=== PATIENT | female | born 1995 | race African-American/Black ===

== ENCOUNTER 2016-09-02 04:23 | Inpatient (IN) | payer MEDICAID ==
[2016-09-02] MEDS ORDERED: Sodium Chloride 0.9% 10 ML Syringe FLUSH PRN (04:40)
[2016-09-02] MEDS ORDERED: Oxytocin/Lactated Ringers 10 UNIT/1,000 ML BAG IV SCH (04:45)
[2016-09-02] MEDS: Lactated Ringers 1,000 ML IV SCH ×2 (05:15→06:07)
[2016-09-02] MEDS ORDERED: ePHEDrine 50 MG/ML SDV IVPUSH PRN (05:23)
[2016-09-02] MEDS ORDERED: diphenhydrAMINE 50 MG/ML SDV IVPUSH PRN (05:23)
[2016-09-02] MEDS ORDERED: fentaNYL 100 MCG/2 ML SDV EPIDUR PRN (05:23)
[2016-09-02] MEDS ORDERED: fentaNYL 100 MCG/2 ML SDV ONE (05:24)
[2016-09-02] MEDS ORDERED: Bupivacaine/fentaNYL/NS 100 ML Bag EPIDUR SCH (05:30)
--- NOTE | 2016-09-02 06:03 | PCM.PREANE ---
Preanesthetic Assessment - Anesthesia/Transfusion/Family Hx Anesthesia History: Prior Anesthesia Without Reaction Family History of Anesthesia Reaction: No Transfusion History: No Prior Transfusion(s) - Review of Systems General: No Symptoms Pulmonary: No Symptoms Cardiovascular: No Symptoms Gastrointestinal: No symptoms Neurological: No Symptoms Other: Reports: None - Physical Assessment Pulse: 84 O2 Sat by Pulse Oximetry: 100 Respiratory Rate: 16 Blood Pressure: 136/48 Temperature: 36.9 C Vital Signs: Last Vital Signs Temp 36.7 C 09/02/16 04:40 Pulse 104 H 09/02/16 04:40 Resp 16 09/02/16 04:40 BP 131/87 09/02/16 04:40 Pulse Ox 100 09/02/16 04:40 Height: 1.6 m Weight: 64.637 kg ASA Class: 2 Mental Status: Alert & Oriented x3 Airway Class: Mallampati = 1 Dentition: Reports: Normal Dentition Thyro-Mental Finger Breadths: 3 Mouth Opening Finger Breadths: 3 ROM/Head Extension: Full Lungs: Clear to auscultation, Normal respiratory effort Cardiovascular: Regular Rate, Regular Rhythm, No Murmurs - Lab Values: Laboratory Last Values WBC 13.33 K/mm3 (3.98-10.04) H 09/02/16 04:50 RBC 4.77 M/mm3 (3.98-5.22) 09/02/16 04:50 Hgb 12.6 gm/L (11.2-15.7) 09/02/16 04:50 Hct 37.0 % (34.1-44.9) 09/02/16 04:50 MCV 77.6 fl (79.4-94.8) L 09/02/16 04:50 MCH 26.4 pg (25.6-32.2) 09/02/16 04:50 MCHC 34.1 g/dl (32.2-35.5) 09/02/16 04:50 RDW Std Deviation 40.3 fL (36.4-46.3) 09/02/16 04:50 Plt Count 214 K/mm3 (182-369) 09/02/16 04:50 MPV 10.9 fl (9.4-12.3) 09/02/16 04:50 Neut % (Auto) 73.8 % (34.0-71.1) H 09/02/16 04:50 Lymph % (Auto) 17.8 % (19.3-51.7) L 09/02/16 04:50 Forrest % (Auto) 8.2 % (4.7-12.5) 09/02/16 04:50 Eos % (Auto) 0 (0.7-5.8) L 09/02/16 04:50 Baso % (Auto) 0.2 % (0.1-1.2) 09/02/16 04:50 Neut # (Auto) 9.85 K/mm3 (1.56-6.13) H 09/02/16 04:50 Lymph # (Auto) 2.37 K/mm3 (1.18-3.74) 09/02/16 04:50 Forrest # (Auto) 1.09 K/mm3 (0.24-0.36) H 09/02/16 04:50 Eos # (Auto) 0.00 K/mm3 (0.04-0.36) L 09/02/16 04:50 Baso # (Auto) 0.02 K/mm3 (0.01-0.08) 09/02/16 04:50 - Allergies Allergies/Adverse Reactions: Allergies Allergy/AdvReac Type Severity Reaction Status Date / Time No Known Allergies Allergy Verified 09/02/16 04:39 - Anesthesia Plan Pre-Op Medication Ordered: None - Acknowledgements Anesthesia Type Planned: Epidural Pt an Appropriate Candidate for the Planned Anesthesia: Yes Alternatives and Risks of Anesthesia Discussed w Pt/Guardian: Yes Pt/Guardian Understands and Agrees with Anesthesia Plan: Yes PreAnesthesia Questionnaire [employer]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: Musculoskeletal History: Reports: Other (see below) Other Musculoskeletal History: scoliosis surgery - HOME MEDS Home Medications: Home Meds Vit W-Ca,Fe,FA(<1 mg) [ Vitamins] 1 each PO DAILY 09/02/16 [ History] - CURRENT (IN HOUSE) MEDS Current Meds: Current Medications Diphenhydramine HCl (Benadryl) 25 mg IVPUSH Q6H PRN PRN Reason: Itching Ephedrine Sulfate (Ephedrine Sulfate) 5 mg IVPUSH ASDIRECTED PRN PRN Reason: HYPOTENTSION Fentanyl (Sublimaze) 100 mcg EPIDUR Q3H PRN PRN Reason: PAIN Fentanyl/Bupivacaine HCl (Fentanyl/Bupivacaine/Ns 2 Mcg-0.125% 100 Ml) 100 ml EPIDUR ASDIRECTED [facility] Last Admin: 09/02/16 05:50 Dose: 100 ml Lactated Ringer's (Ringers, Lactated) 1,000 mls @ 100 mls/hr IV ASDIRECTED [facility] Oxytocin/Lactated Ringer's (Pitocin In Lr 10 Units/1,000 Ml) 10 unit in 1,000 mls @ 500 mls/hr IV ASDIRECTED [facility] Sodium Chloride (Saline Flush) 10 ml FLUSH ASDIRECTED PRN PRN Reason: Keep Vein Open Discontinued Medications Fentanyl (Sublimaze) Confirm Administered Dose 100 mcg .ROUTE .[employer] 3D ONE Stop: 09/02/16 05:25 Last Admin: 09/02/16 05:50 Dose: 100 mcg
--- NOTE | 2016-09-02 06:53 | PCM.LDHP ---
L&D History of Present Illness - General Date of Service: 09/02/16 Admit Problem/Dx: Patient Status Order with Admit Dx/Problem 09/02/16 04:41 Patient Status [ADT] Routine Admission Diagnosis/Problem Admission Diagnosis/Problem Normal labor Source of Information: Patient History Limitations: Reports: No limitations - History of Present Illness Introduction:: 21 y/o ALIN 09/01/16 EGA 40w1d Presented to L&D approximately 0430 at 4 cm and at 0530 8 cm. Rupture of membranes occurred before arriving at L&D thick meconium. 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: Musculoskeletal History: Reports: Other (see below) Other Musculoskeletal History: scoliosis surgery Social & Family History - Family History Family Medical History: Noncontributory - Tobacco Use Smoking Status *Q: Never Smoker - Caffeine Use Caffeine Use: Reports: None - Recreational Drug Use Recreational Drug Use: No H&P Review of Systems - Review of Systems: Review Of Systems: See Below General: Reports: no symptoms HEENT: Reports: no symptoms Pulmonary: Reports: No Symptoms Cardiovascular: Reports: no symptoms Gastrointestinal: Reports: No symptoms Genitourinary: Reports: no symptoms Musculoskeletal: Reports: no symptoms Skin: Reports: no symptoms Psychiatric: Reports: no symptoms Neurological: Reports: No Symptoms Hematologic/Lymphatic: Reports: no symptoms Immunologic: Reports: no symptoms L&D Exam - Exam Exam: See Below - Vital Signs Vital Signs: Last Vital Signs Temp 98.4 F 09/02/16 06:03 Pulse 84 09/02/16 06:03 Resp 16 09/02/16 06:03 BP 136/48 L 09/02/16 06:03 Pulse Ox 100 09/02/16 06:03 Weight: 142 lb 8 oz - OB Specific Fundal Height in cm: 37 Contraction Duration (sec): 60 Contraction Frequency (min): 3 Contraction Intensity: Moderate to Strong movement: active heart tones: present heart tones per min: 140 Heart Rate (FHR) Variability: Moderate (6-25 bmp) Presentation: Vertex - Rosales Score Rosales Score Cervix Position: Anterior Rosales Score Consistency: Soft Rosales Score Effacement: >80% Rosales Score Dilation: > 5 cm Rosales Score Infant's Station: +1, +2 Rosales Score Total: 13 - Exam General: alert, oriented HEENT: Mucosa moist & pink Neck: supple, trachea midline Lungs: Clear to auscultation, Normal respiratory effort Cardiovascular: regular rate, regular rhythm Abdomen: normal bowel sounds, soft Genitourinary: Normal external exam Extremities: normal inspection Skin: warm, dry, intact Psychiatric: alert, normal affect, normal mood - Patient Data Lab Results last 24 hrs: Laboratory Results - last 24 hr 09/02/16 Range/Units 04:50 WBC 13.33 H (3.98-10.04) K/mm3 RBC 4.77 (3.98-5.22) M/mm3 Hgb 12.6 (11.2-15.7) gm/L Hct 37.0 (34.1-44.9) % MCV 77.6 L (79.4-94.8) fl MCH 26.4 (25.6-32.2) pg MCHC 34.1 (32.2-35.5) g/dl RDW Std Deviation 40.3 (36.4-46.3) fL Plt Count 214 (182-369) K/mm3 MPV 10.9 (9.4-12.3) fl Neut % (Auto) 73.8 H (34.0-71.1) % Lymph % (Auto) 17.8 L (19.3-51.7) % Loving % (Auto) 8.2 (4.7-12.5) % Eos % (Auto) 0 L (0.7-5.8) Baso % (Auto) 0.2 (0.1-1.2) % Neut # (Auto) 9.85 H (1.56-6.13) K/mm3 Lymph # (Auto) 2.37 (1.18-3.74) K/mm3 Loving # (Auto) 1.09 H (0.24-0.36) K/mm3 Eos # (Auto) 0.00 L (0.04-0.36) K/mm3 Baso # (Auto) 0.02 (0.01-0.08) K/mm3 Result Diagrams: 09/02/16 04:50 - Problem List (1) 40 weeks gestation of SNOMED Code(s): 69570665 ICD Code: Z3A.40 - 40 WEEKS GESTATION OF Status: Acute Current Visit: Yes (2) Meconium in amniotic fluid affecting management of mother in third trimester SNOMED Code(s): 54286450, 08970933 ICD Code: O36.8930 - MATERNAL CARE FOR OTH PROBLEMS, THIRD TRIMESTER, UNSP Status: Acute Current Visit: Yes Qualifiers: Fetus number: single or unspecified fetus Qualified Code(s): O36.8930 - Maternal care for other specified problems, third trimester, not applicable or unspecified Problem List Initiated/Reviewed/Updated: No Orders Last 24hrs: Active Orders 24 hr Category Date Time Status Patient Status [ADT] Routine ADT 09/02/16 04:41 Active Activity as Tolerated [RC] PFP Care 09/02/16 04:40 Active Communication Order [RC] ASDIRECTED Care 09/02/16 05:23 Active Notify Provider [RC] ASDIRECTED Care 09/02/16 05:23 Active Notify Provider [RC] PFP Care 09/02/16 04:40 Active Notify Provider [RC] PRN Care 09/02/16 04:40 Active Peripheral IV Care [RC] . DIRECTED Care 09/02/16 04:40 Active Urinary Catheter Assessment [RC] ASDIRECTED Care 09/02/16 04:40 Active Vital Signs [RC] Q1H Care 09/02/16 05:23 Active Clear Liquid Diet [DIET] Diet 09/02/16 Breakfast Active Bupivacaine/fentaNYL/NS [fentaNYL/Bupivacaine/NS 2 MCG- Med 09/02/16 05:30 Active 0.125% 100 ML] 100 ml EPIDUR ASDIRECTED Lactated Ringers [Ringers, Lactated] 1,000 ml Med 09/02/16 04:45 Active IV ASDIRECTED Oxytocin/Lactated Ringers [Pitocin in LR 10 Units/1,000 Med 09/02/16 04:45 Active ML] 10 unit in 1,000 ml IV ASDIRECTED Sodium Chloride 0.9% [Saline Flush] Med 09/02/16 04:40 Active 10 ml FLUSH ASDIRECTED PRN diphenhydrAMINE [Benadryl] Med 09/02/16 05:23 Active 25 mg IVPUSH Q6H PRN ePHEDrine [ePHEDrine Sulfate] Med 09/02/16 05:23 Active 5 mg IVPUSH ASDIRECTED PRN fentaNYL [Sublimaze] Med 09/02/16 05:23 Active 100 mcg EPIDUR Q3H PRN Electronic Heart Tones Ext w TOCO [WOMSER] Oth 09/02/16 04:40 Ordered Routine Electronic Heart Tones Internal [WOMSER] Per Unit Oth 09/02/16 04:40 Ordered Routine Peripheral IV Insertion Adult [OM.PC] Routine Oth 09/02/16 04:40 Ordered Resuscitation Status Routine Resus Stat 09/02/16 04:40 Ordered Medication Orders Diphenhydramine HCl (Benadryl) 25 mg IVPUSH Q6H PRN PRN Reason: Itching Ephedrine Sulfate (Ephedrine Sulfate) 5 mg IVPUSH ASDIRECTED PRN PRN Reason: HYPOTENTSION Fentanyl (Sublimaze) 100 mcg EPIDUR Q3H PRN PRN Reason: PAIN Fentanyl/Bupivacaine HCl (Fentanyl/Bupivacaine/Ns 2 Mcg-0.125% 100 Ml) 100 ml EPIDUR ASDIRECTED [facility] Last Admin: 09/02/16 05:50 Dose: 100 ml Lactated Ringer's (Ringers, Lactated) 1,000 mls @ 100 mls/hr IV ASDIRECTED [facility] Last Admin: 09/02/16 06:07 Dose: 999 mls/hr Infusion: 09/02/16 06:07 Dose: 999 mls/hr Admin: 09/02/16 05:15 Dose: 999 mls/hr Oxytocin/Lactated Ringer's (Pitocin In Lr 10 Units/1,000 Ml) 10 unit in 1,000 mls @ 500 mls/hr IV ASDIRECTED [facility] Sodium Chloride (Saline Flush) 10 ml FLUSH ASDIRECTED PRN PRN Reason: Keep Vein Open
--- NOTE | 2016-09-02 07:23 | PCM.DEL ---
L & D Note - General Info Date of Service: 09/02/16 Mother's Due Date: 09/01/16 - Delivery Note Labor: spontaneous Delivery Outcome: Livebirth (male liveborn at 07Monday09/02/2017 KIP Nuchal cord x1 tight APGARs 7/9 Weight 3430 gms/7#9 oz) Delivery Method: Spontaneous Vaginal Delivery Delivery Mode: Spontaneous Presentation: Vertex Nuchal cord: present (tight) Anesthesia Type: None Episiotomy Type: None Laceration: none Placenta: intact, spontaneous Cord: 3 vessels Estimated blood loss: 250 Resuscitation needed: No [place]: suctioned, bulb syringe, cathether, stimulated, warmed, blanket used, warmer used Provider: Romero Mills Score 1 min: 7 Score 5 min: 9 - Patient Data Vitals - most recent: Last Vital Signs Temp 98.4 F 09/02/16 06:03 Pulse 84 09/02/16 06:03 Resp 16 09/02/16 06:03 BP 136/48 L 09/02/16 06:03 Pulse Ox 100 09/02/16 06:03 Weight - most recent: 142 lb 8 oz Lab Results last 24 hrs: Laboratory Results - last 24 hr 09/02/16 Range/Units 04:50 WBC 13.33 H (3.98-10.04) K/mm3 RBC 4.77 (3.98-5.22) M/mm3 Hgb 12.6 (11.2-15.7) gm/L Hct 37.0 (34.1-44.9) % MCV 77.6 L (79.4-94.8) fl MCH 26.4 (25.6-32.2) pg MCHC 34.1 (32.2-35.5) g/dl RDW Std Deviation 40.3 (36.4-46.3) fL Plt Count 214 (182-369) K/mm3 MPV 10.9 (9.4-12.3) fl Neut % (Auto) 73.8 H (34.0-71.1) % Lymph % (Auto) 17.8 L (19.3-51.7) % [place]eld % (Auto) 8.2 (4.7-12.5) % Eos % (Auto) 0 L (0.7-5.8) Baso % (Auto) 0.2 (0.1-1.2) % Neut # (Auto) 9.85 H (1.56-6.13) K/mm3 Lymph # (Auto) 2.37 (1.18-3.74) K/mm3 Weld # (Auto) 1.09 H (0.24-0.36) K/mm3 Eos # (Auto) 0.00 L (0.04-0.36) K/mm3 Baso # (Auto) 0.02 (0.01-0.08) K/mm3 Med Orders - Current: Current Medications Diphenhydramine HCl (Benadryl) 25 mg IVPUSH Q6H PRN PRN Reason: Itching Ephedrine Sulfate (Ephedrine Sulfate) 5 mg IVPUSH ASDIRECTED PRN PRN Reason: HYPOTENTSION Fentanyl (Sublimaze) 100 mcg EPIDUR Q3H PRN PRN Reason: PAIN Fentanyl/Bupivacaine HCl (Fentanyl/Bupivacaine/Ns 2 Mcg-0.125% 100 Ml) 100 ml EPIDUR ASDIRECTED [facility] Last Admin: 09/02/16 05:50 Dose: 100 ml Lactated Ringer's (Ringers, Lactated) 1,000 mls @ 100 mls/hr IV ASDIRECTED [facility] Last Admin: 09/02/16 06:07 Dose: 999 mls/hr Oxytocin/Lactated Ringer's (Pitocin In Lr 10 Units/1,000 Ml) 10 unit in 1,000 mls @ 500 mls/hr IV ASDIRECTED [facility] Sodium Chloride (Saline Flush) 10 ml FLUSH ASDIRECTED PRN PRN Reason: Keep Vein Open Discontinued Medications Fentanyl (Sublimaze) Confirm Administered Dose 100 mcg .ROUTE .STK-MED ONE Stop: 09/02/16 05:25 Last Admin: 09/02/16 05:50 Dose: 100 mcg - Problem List & Annotations (1) 40 weeks gestation of SNOMED Code(s): 52196203 Code(s): Z3A.40 - 40 WEEKS GESTATION OF Status: Acute Current Visit: Yes (2) Meconium in amniotic fluid affecting management of mother, delivered SNOMED Code(s): 30223839, 085500592, 851244456 Code(s): O77.0 - LABOR AND DELIVERY COMPLICATED BY MECONIUM IN AMNIOTIC FLUID Status: Acute Current Visit: Yes (3) Nuchal cord without compression, delivered, current hospitalization SNOMED Code(s): 25556436 Code(s): O69.81X0 - LABOR AND DEL COMP BY CORD AROUND NECK, W/O COMPRSN, UNSP Status: Acute Current Visit: Yes - Problem List Review Problem List Initiated/Reviewed/Updated: No - My Orders Last 24 Hours: My Active Orders 09/02/16 04:40 Activity as Tolerated [RC] PFP Notify Provider [RC] PFP Notify Provider [RC] PRN Peripheral IV Care [RC] . DIRECTED Urinary Catheter Assessment [RC] ASDIRECTED Sodium Chloride 0.9% [Saline Flush] 10 ml FLUSH ASDIRECTED PRN Electronic Heart Tones Ext w TOCO [WOMSER] Routine Electronic Heart Tones Internal [WOMSER] Per Unit Routine Peripheral IV Insertion Adult [OM.PC] Routine Resuscitation Status Routine 09/02/16 04:41 Patient Status [ADT] Routine 09/02/16 04:45 Lactated Ringers [Ringers, Lactated] 1,000 ml IV ASDIRECTED Oxytocin/Lactated Ringers [Pitocin in LR 10 Units/1,000 ML] 10 unit in 1,000 ml IV ASDIRECTED 09/02/16 Breakfast Clear Liquid Diet [DIET] - Plan Plan:: 09/02/16 0711
[2016-09-02] MEDS ORDERED: Docusate Sodium 100 MG Cap PO PRN (07:53)
[2016-09-02] MEDS ORDERED: Witch Hazel Medicated Pads 100/Jar TOP PRN (07:53)
[2016-09-02] MEDS ORDERED: Acetaminophen 325 MG Tab PO PRN (07:53)
[2016-09-02] MEDS ORDERED: Lanolin 100% Cream 7 GM Tube TOP PRN (07:53)
[2016-09-02] MEDS ORDERED: Simethicone 80 MG Tab.Chew PO PRN (07:53)
[2016-09-02] MEDS ORDERED: Acetaminophen/oxyCODONE 325-5 MG Tab PO PRN (07:53)
[2016-09-02] MEDS ORDERED: Benzocaine/Menthol 20%-0.5% Spray 56 GM Canister TOP PRN (07:53)
--- NOTE | 2016-09-02 08:24 | PCM48HPAN ---
Post Anesthesia Note - EVALUATION WITHIN 48HRS OF ANESTHETIC Vital Signs in Normal Range: Yes Patient Participated in Evaluation: Yes Respiratory Function Stable: Yes Airway Patent: Yes Cardiovascular Function Stable: Yes Hydration Status Stable: Yes Pain Control Satisfactory: Yes Nausea and Vomiting Control Satisfactory: Yes Mental Status Recovered: Yes
[2016-09-02] MEDS: Prenatal Multivitamin with Calcium/Folic Acid/Iron Tab PO SCH (10:05)
[2016-09-02] MEDS: Ibuprofen 600 MG Tab PO PRN ×2 (11:09→20:52)
[2016-09-02] MEDS ORDERED: Bupivacaine 0.25% 10 ML SDV ONE (22:22)
[2016-09-03] MEDS: Ibuprofen 600 MG Tab PO PRN ×2 (04:03→19:44)
[2016-09-03] MEDS: Prenatal Multivitamin with Calcium/Folic Acid/Iron Tab PO SCH (09:29)
--- NOTE | 2016-09-03 10:30 | PCM.SN ---
- Free Text/Narrative Note: PPD#! Afebrile, normal uterine involution, no heavy vaginal bleeding, no leg cramping.
[2016-09-04] MEDS: Prenatal Multivitamin with Calcium/Folic Acid/Iron Tab PO SCH (10:14)
--- NOTE | 2016-09-04 10:24 | PCM.DCSUM1 ---
Discharge Summary - Hospital Course Free Text/Narrative:: [facility] LIVE L/D Delivery Note Patient Name: DEBORAH AQUINO Date of : 89 Patient Status: Inpatient Attending Provider: Romero Mills Date: 09/02/16 07:19 Initialization Date: 09/02/16 07:19 L & D Note - General Info Date of Service: 09/02/16 Mother's Due Date: 09/01/16 - Delivery Note Labor: spontaneous Delivery Outcome: Livebirth ([place]born [place] [address]/[birth year]/2016 KIP Nuchal cord x1 tight APGARs 7/9 Weight 3430 gms/7#9 oz) Infant Delivery Method: Spontaneous Vaginal Delivery Infant Delivery Mode: Spontaneous Presentation: Vertex Nuchal cord: present (tight) Anesthesia Type: None Episiotomy Type: None Laceration: none Placenta: intact, spontaneous Cord: 3 vessels Estimated blood loss: 250 Resuscitation needed: No [place]: suctioned, bulb syringe, cathether, stimulated, warmed, blanket used, warmer used Provider: Romero Mills Score 1 min: 7 Score 5 min: 9 - Patient Data Vitals - most recent: Last Vital Signs Temp 98.4 F 09/02/16 06:03 Pulse 84 09/02/16 06:03 Resp 16 09/02/16 06:03 BP 136/48 L 09/02/16 06:03 Pulse Ox 100 09/02/16 06:03 Weight - most recent: 142 lb 8 oz Lab Results last 24 hrs: Laboratory Results - last 24 hr 09/02/16 Range/Units 04:50 WBC 13.33 H (3.98-10.04) K/mm3 RBC 4.77 (3.98-5.22) M/mm3 Hgb 12.6 (11.2-15.7) gm/L Hct 37.0 (34.1-44.9) % MCV 77.6 L (79.4-94.8) fl MCH 26.4 (25.6-32.2) pg MCHC 34.1 (32.2-35.5) g/dl RDW Std Deviation 40.3 (36.4-46.3) fL Plt Count 214 (182-369) K/mm3 MPV 10.9 (9.4-12.3) fl Neut % (Auto) 73.8 H (34.0-71.1) % Lymph % (Auto) 17.8 L (19.3-51.7) % [place] % (Auto) 8.2 (4.7-12.5) % Eos % (Auto) 0 L (0.7-5.8) Baso % (Auto) 0.2 (0.1-1.2) % Neut # (Auto) 9.85 H (1.56-6.13) K/mm3 Lymph # (Auto) 2.37 (1.18-3.74) K/mm3 [place] # (Auto) 1.09 H (0.24-0.36) K/mm3 Eos # (Auto) 0.00 L (0.04-0.36) K/mm3 Baso # (Auto) 0.02 (0.01-0.08) K/mm3 Med Orders - Current: Current Medications Diphenhydramine HCl (Benadryl) 25 mg IVPUSH Q6H PRN PRN Reason: Itching Ephedrine Sulfate (Ephedrine Sulfate) 5 mg IVPUSH ASDIRECTED PRN PRN Reason: HYPOTENTSION Fentanyl (Sublimaze) 100 mcg EPIDUR Q3H PRN PRN Reason: PAIN Fentanyl/Bupivacaine HCl (Fentanyl/Bupivacaine/Ns 2 Mcg-0.125% 100 Ml) 100 ml EPIDUR ASDIRECTED [facility] Last Admin: 09/02/16 05:50 Dose: 100 ml Lactated Ringer's (Ringers, Lactated) 1,000 mls @ 100 mls/hr IV ASDIRECTED [facility] Last Admin: 09/02/16 06:07 Dose: 999 mls/hr Oxytocin/Lactated Ringer's (Pitocin In Lr 10 Units/1,000 Ml) 10 unit in 1,000 mls @ 500 mls/hr IV ASDIRECTED [facility] Sodium Chloride (Saline Flush) 10 ml FLUSH ASDIRECTED PRN PRN Reason: Keep Vein Open Discontinued Medications Fentanyl (Sublimaze) Confirm Administered Dose 100 mcg .ROUTE .STK-MED ONE Stop: 09/02/16 05:25 Last Admin: 09/02/16 05:50 Dose: 100 mcg - Problem List & Annotations (1) 40 weeks gestation of SNOMED Code(s): 17835306 Code(s): Z3A.40 - 40 WEEKS GESTATION OF Status: Acute Current Visit: Yes (2) Meconium in amniotic fluid affecting management of mother, delivered SNOMED Code(s): 43083438, 447620567, 002206840 Code(s): O77.0 - LABOR AND DELIVERY COMPLICATED BY MECONIUM IN AMNIOTIC FLUID Status: Acute Current Visit: Yes (3) Nuchal cord without compression, delivered, current hospitalization SNOMED Code(s): 27922673 Code(s): O69.81X0 - LABOR AND DEL COMP BY CORD AROUND NECK, W/O COMPRSN, UNSP Status: Acute Current Visit: Yes - Problem List Review Problem List Initiated/Reviewed/Updated: No - My Orders Last 24 Hours: My Active Orders 09/02/16 04:40 Activity as Tolerated [RC] PFP Notify Provider [RC] PFP Notify Provider [RC] PRN Peripheral IV Care [RC] . DIRECTED Urinary Catheter Assessment [RC] ASDIRECTED Sodium Chloride 0.9% [Saline Flush] 10 ml FLUSH ASDIRECTED PRN Electronic Heart Tones Ext w TOCO [WOMSER] Routine Electronic Heart Tones Internal [WOMSER] Per Unit Routine Peripheral IV Insertion Adult [OM.PC] Routine Resuscitation Status Routine 09/02/16 04:41 Patient Status [ADT] Routine 09/02/16 04:45 Lactated Ringers [Ringers, Lactated] 1,000 ml IV ASDIRECTED Oxytocin/Lactated Ringers [Pitocin in LR 10 Units/1,000 ML] 10 unit in 1,000 ml IV ASDIRECTED 09/02/16 Breakfast Clear Liquid Diet [DIET] - Plan Plan:: 09/02/16 0711 HPI Initial Comments: [facility] LIVE L/D Delivery Note Patient Name: DEBORAH AQUINO Date of : 89 Patient Status: Inpatient Attending Provider: Romero Mills Date: 09/02/16 07:19 Initialization Date: 09/02/16 07:19 L & D Note - General Info Date of Service: 09/02/16 Mother's Due Date: 09/01/16 - Delivery Note Labor: spontaneous Delivery Outcome: Livebirth ([place] [address][birth year]2016 KIP Nuchal cord x1 tight APGARs 7/9 Weight 3430 gms/7#9 oz) Infant Delivery Method: Spontaneous Vaginal Delivery Delivery Mode: Spontaneous Presentation: Vertex Nuchal cord: present (tight) Anesthesia Type: None Episiotomy Type: None Laceration: none Placenta: intact, spontaneous Cord: 3 vessels Estimated blood loss: 250 Resuscitation needed: No : suctioned, bulb syringe, cathether, stimulated, warmed, blanket used, warmer used Provider: Romero Mills Score 1 min: 7 Score 5 min: 9 - Patient Data Vitals - most recent: Last Vital Signs Temp 98.4 F 09/02/16 06:03 Pulse 84 09/02/16 06:03 Resp 16 09/02/16 06:03 BP 136/48 L 09/02/16 06:03 Pulse Ox 100 09/02/16 06:03 Weight - most recent: 142 lb 8 oz Lab Results last 24 hrs: Laboratory Results - last 24 hr 09/02/16 Range/Units 04:50 WBC 13.33 H (3.98-10.04) K/mm3 RBC 4.77 (3.98-5.22) M/mm3 Hgb 12.6 (11.2-15.7) gm/L Hct 37.0 (34.1-44.9) % MCV 77.6 L (79.4-94.8) fl MCH 26.4 (25.6-32.2) pg MCHC 34.1 (32.2-35.5) g/dl RDW Std Deviation 40.3 (36.4-46.3) fL Plt Count 214 (182-369) K/mm3 MPV 10.9 (9.4-12.3) fl Neut % (Auto) 73.8 H (34.0-71.1) % Lymph % (Auto) 17.8 L (19.3-51.7) % [place] % (Auto) 8.2 (4.7-12.5) % Eos % (Auto) 0 L (0.7-5.8) Baso % (Auto) 0.2 (0.1-1.2) % Neut # (Auto) 9.85 H (1.56-6.13) K/mm3 Lymph # (Auto) 2.37 (1.18-3.74) K/mm3 [place] # (Auto) 1.09 H (0.24-0.36) K/mm3 Eos # (Auto) 0.00 L (0.04-0.36) K/mm3 Baso # (Auto) 0.02 (0.01-0.08) K/mm3 Med Orders - Current: Current Medications Diphenhydramine HCl (Benadryl) 25 mg IVPUSH Q6H PRN PRN Reason: Itching Ephedrine Sulfate (Ephedrine Sulfate) 5 mg IVPUSH ASDIRECTED PRN PRN Reason: HYPOTENTSION Fentanyl (Sublimaze) 100 mcg EPIDUR Q3H PRN PRN Reason: PAIN Fentanyl/Bupivacaine HCl (Fentanyl/Bupivacaine/Ns 2 Mcg-0.125% 100 Ml) 100 ml EPIDUR ASDIRECTED [facility] Last Admin: 09/02/16 05:50 Dose: 100 ml Lactated Ringer's (Ringers, Lactated) 1,000 mls @ 100 mls/hr IV ASDIRECTED [facility] Last Admin: 09/02/16 06:07 Dose: 999 mls/hr Oxytocin/Lactated Ringer's (Pitocin In Lr 10 Units/1,000 Ml) 10 unit in 1,000 mls @ 500 mls/hr IV ASDIRECTED [facility] Sodium Chloride (Saline Flush) 10 ml FLUSH ASDIRECTED PRN PRN Reason: Keep Vein Open Discontinued Medications Fentanyl (Sublimaze) Confirm Administered Dose 100 mcg .ROUTE .STK-MED ONE Stop: 09/02/16 05:25 Last Admin: 09/02/16 05:50 Dose: 100 mcg - Problem List & Annotations (1) 40 weeks gestation of SNOMED Code(s): 49556184 Code(s): Z3A.40 - 40 WEEKS GESTATION OF Status: Acute Current Visit: Yes (2) Meconium in amniotic fluid affecting management of mother, delivered SNOMED Code(s): 46013154, 933981777, 469026051 Code(s): O77.0 - LABOR AND DELIVERY COMPLICATED BY MECONIUM IN AMNIOTIC FLUID Status: Acute Current Visit: Yes (3) Nuchal cord without compression, delivered, current hospitalization SNOMED Code(s): 76398062 Code(s): O69.81X0 - LABOR AND DEL COMP BY CORD AROUND NECK, W/O COMPRSN, UNSP Status: Acute Current Visit: Yes - Problem List Review Problem List Initiated/Reviewed/Updated: No - My Orders Last 24 Hours: My Active Orders 09/02/16 04:40 Activity as Tolerated [RC] PFP Notify Provider [RC] PFP Notify Provider [RC] PRN Peripheral IV Care [RC] . DIRECTED Urinary Catheter Assessment [RC] ASDIRECTED Sodium Chloride 0.9% [Saline Flush] 10 ml FLUSH ASDIRECTED PRN Electronic Heart Tones Ext w TOCO [WOMSER] Routine Electronic Heart Tones Internal [WOMSER] Per Unit Routine Peripheral IV Insertion Adult [OM.PC] Routine Resuscitation Status Routine 09/02/16 04:41 Patient Status [ADT] Routine 09/02/16 04:45 Lactated Ringers [Ringers, Lactated] 1,000 ml IV ASDIRECTED Oxytocin/Lactated Ringers [Pitocin in LR 10 Units/1,000 ML] 10 unit in 1,000 ml IV ASDIRECTED 09/02/16 Breakfast Clear Liquid Diet [DIET] - Plan Plan:: 09/02/16 0711 Brief History: [facility] LIVE . L/D Delivery Note. [facility]: [id number]. Date of : Patient Status: Inpatient. Attending Provider: Romero Mills Number: [id number]. Date: 09/02/16 07:19Initialization Date: 09/02/16 07:19. L & D Note. - General Info. Date of Service: 09/02/16. Mother's Due Date: 09/01/16. - Delivery Note. Labor: spontaneous. Delivery Outcome: Livebirth ( [place] liveborn [place] [address][birth year]2016 KIP Nuchal cord x1 tight APGARs 7/9 Weight 3430 gms/7#9 oz). Infant Delivery Method: Spontaneous Vaginal Delivery. Infant Delivery Mode: Spontaneous. Presentation: Vertex. Nuchal cord: present (tight). Anesthesia Type: None. Episiotomy Type: None. Laceration: none. Placenta: intact, spontaneous. Cord: 3 vessels. Estimated blood loss: 250. Resuscitation needed: No. : suctioned, bulb syringe, cathether, stimulated, warmed, blanket used, warmer used. Provider: Romero Mills. Score 1 min: 7. Score 5 min: 9. - Patient Data. Vitals - most recent: Last Vital Signs. Temp 98.4 F 09/02/16 06:03. Pulse 84 09/02/16 06:03. Resp 16 09/02/16 06:03. BP 136/48 L 09/02/16 06:03. Pulse Ox 100 09/02/16 06:03. Weight - most recent: 142 lb 8 oz. Lab Results last 24 hrs: Laboratory Results - last 24 hr. 09/02/16Range/Units. 04:50. WBC 13.33 H (3.98-10.04) K/mm3. RBC 4.77 (3.98-5.22) M/mm3. Hgb 12.6 (11.2- 15.7) gm/L. Hct 37.0 (34.1-44.9) %. MCV 77.6 L (79.4-94.8) fl. MCH 26.4 ( 25.6-32.2) pg. MCHC 34.1 (32.2-35.5) g/dl. RDW Std Deviation 40.3 (36.4-46.3 ) fL. Plt Count 214 (182-369) K/mm3. MPV 10.9 (9.4-12.3) fl. Neut % (Auto ) 73.8 H (34.0-71.1) %. Lymph % (Auto) 17.8 L (19.3-51.7) %. [place] % (Auto) 8.2 (4.7-12.5) %. Eos % (Auto) 0 L (0.7-5.8). Baso % (Auto) 0.2 (0.1-1.2) % . Neut # (Auto) 9.85 H (1.56-6.13) K/mm3. Lymph # (Auto) 2.37 (1.18-3.74) K/ mm3. [place] # (Auto) 1.09 H (0.24-0.36) K/mm3. Eos # (Auto) 0.00 L (0.04-0.36) K/mm3. Baso # (Auto) 0.02 (0.01-0.08) K/mm3. Med Orders - Current: Current Medications. Diphenhydramine HCl (Benadryl) 25 mg IVPUSH Q6H PRN. PRN Reason: Itching. Ephedrine Sulfate (Ephedrine Sulfate) 5 mg IVPUSH ASDIRECTED PRN. PRN Reason: HYPOTENTSION. Fentanyl (Sublimaze) 100 mcg EPIDUR Q3H PRN. PRN Reason: PAIN. Fentanyl/Bupivacaine HCl (Fentanyl/ Bupivacaine/Ns 2 Mcg-0.125% 100 Ml) 100 ml EPIDUR ASDIRECTED [facility]. Last Admin: 09/02/16 05:50 Dose: 100 ml. Lactated Ringer's (Ringers, Lactated) 1,000 mls @ 100 mls/hr IV ASDIRECTED [facility]. Last Admin: 09/02/16 06:07 Dose: 999 mls/hr. Oxytocin/Lactated Ringer's (Pitocin In Lr 10 Units/1,000 Ml) 10 unit in 1,000 mls @ 500 mls/hr IV ASDIRECTED [facility]. Sodium Chloride (Saline Flush) 10 ml FLUSH ASDIRECTED PRN. PRN Reason: Keep Vein Open. Discontinued Medications. Fentanyl (Sublimaze) Confirm Administered Dose 100 mcg .ROUTE .STK-MED ONE. Stop: 09/02/16 05:25. Last Admin: 09/02/16 05:50 Dose: 100 mcg. - Problem List & Annotations. (1) 40 weeks gestation of . SNOMED Code(s): 13292589. Code(s): Z3A.40 - 40 WEEKS GESTATION OF Status: Acute Current Visit: Yes. (2) Meconium in amniotic fluid affecting management of mother, delivered. SNOMED Code(s): 97860602, 523450894, 614224360. Code(s): O77.0 - LABOR AND DELIVERY COMPLICATED BY MECONIUM IN AMNIOTIC FLUID Status: Acute Current Visit: Yes. (3) Nuchal cord without compression, delivered, current hospitalization. SNOMED Code(s): 27320350. Code(s): O69.81X0 - LABOR AND DEL COMP BY CORD AROUND NECK, W/O COMPRSN, UNSP Status: Acute Current Visit: Yes. - Problem List Review. Problem List Initiated/Reviewed/Updated: No. - My Orders. Last 24 Hours: My Active Orders. 09/02/16 04:40. Activity as Tolerated [RC] PFP. Notify Provider [RC] PFP. Notify Provider [RC] PRN. Peripheral IV Care [RC] . DIRECTED. Urinary Catheter Assessment [RC] ASDIRECTED. Sodium Chloride 0.9% [Saline Flush] 10 ml FLUSH ASDIRECTED PRN. Electronic Heart Tones Ext w TOCO [WOMSER] Routine. Electronic Heart Tones Internal [WOMSER] Per Unit Routine. Peripheral IV Insertion Adult [ OM.PC] Routine. Resuscitation Status Routine. 09/02/16 04:41. Patient Status [ADT] Routine. 09/02/16 04:45. Lactated Ringers [Ringers, Lactated] 1,000 ml IV ASDIRECTED. Oxytocin/Lactated Ringers [Pitocin in LR 10 Units/1,000 ML] 10 unit in 1,000 ml IV ASDIRECTED. 09/02/16 Breakfast. Clear Liquid Diet [DIET]. - Plan. Plan:: 09/02/16 0711 - Discharge Data Discharge Date: 09/04/16 Discharge Disposition: Home, Self-Care 01 Condition: Good - Discharge Diagnosis/Problem(s) (1) 40 weeks gestation of SNOMED Code(s): 24848346 ICD Code: Z3A.40 - 40 WEEKS GESTATION OF Status: Acute Current Visit: Yes (2) Meconium in amniotic fluid affecting management of mother, delivered SNOMED Code(s): 23175700, 461230182, 142299577 ICD Code: O77.0 - LABOR AND DELIVERY COMPLICATED BY MECONIUM IN AMNIOTIC FLUID Status: Acute Current Visit: Yes (3) Nuchal cord without compression, delivered, current hospitalization SNOMED Code(s): 32840271 ICD Code: O69.81X0 - LABOR AND DEL COMP BY CORD AROUND NECK, W/O COMPRSN, UNSP Status: Acute Current Visit: Yes - Patient Summary/Data Complications: None Consults: None Hospital Course: Uneventful - Patient Instructions Diet: Heart Healthy Diet Driving: Do Not Drive (X48) Showering/Bathing: May Shower Notify Provider of: Fever, Increased Pain, Swelling and Redness, Drainage, Nausea and/or Vomiting - Discharge Plan Home Medications: Home Meds Vit W-Ca,Fe,FA(<1 mg) [ Vitamins] 1 each PO DAILY 09/02/16 [ History] Acetaminophen [Tylenol] 650 mg PO Q6H PRN #0 tablet 09/04/16 [Rx] Benzocaine/Menthol [Dermoplast Pain Relief [place]] 1 spray TOP ASDIRECTED PRN #0 canister 09/04/16 [Rx] Docusate Sodium [Colace] 100 mg PO BID PRN #0 cap 09/04/16 [Rx] Ibuprofen [IJD: Ibuprofen] 200 - 600 mg PO Q6H PRN #0 tablet 09/04/16 [Rx] Simethicone 80 mg PO Q4H PRN #0 tab.chew 09/04/16 [Rx] Ascencion Brannonel [Tucks] 1 pad TOP ASDIRECTED PRN #0 pad 09/04/16 [Rx] Referrals: Romero Mills MD [Primary Care Provider] - (6 weeks) - Discharge Summary/Plan Comment DC Time >30 min.: No - Patient Data Vitals - Most Recent: Last Vital Signs Temp 98.2 F 09/04/16 03:20 Pulse 73 09/04/16 03:20 Resp 15 09/04/16 03:20 BP 132/90 09/04/16 03:20 Pulse Ox 98 09/04/16 03:20 Weight - Most Recent: 142 lb 8 oz I&O - Last 24 hours: Intake & Output 09/03/16 09/04/16 09/04/16 22:59 06:59 14:59 Intake Total 1140 Balance 1140 Med Orders - Current: Current Medications Acetaminophen (Tylenol) 650 mg PO Q4H PRN PRN Reason: mild pain or fever Benzocaine/Menthol (Dermoplast Pain Relief [place]) 0 gm TOP ASDIRECTED PRN PRN Reason: Perineal Comfort Measure Docusate Sodium (Colace) 100 mg PO BID PRN PRN Reason: Constipation Emollient Ointment (Lansinoh Hpa) 0 gm TOP ASDIRECTED PRN PRN Reason: Sore Nipples Ibuprofen (Motrin) 600 mg PO Q4H PRN PRN Reason: Mild pain or fever Last Admin: 09/03/16 19:44 Dose: 600 mg Oxycodone/Acetaminophen (Percocet 325-5 Mg) 1 tab PO Q4H PRN PRN Reason: Pain (moderate 4-6) Prenat Multivit/Autism Specialist/Iron/Folic Ac ( Plus Iron) 1 each PO DAILY [facility] Last Admin: 09/04/16 10:14 Dose: 1 each Simethicone (Simethicone) 80 mg PO Q4H PRN PRN Reason: Gas Witch Gracie (Tucks) 1 pad TOP ASDIRECTED PRN PRN Reason: Hemorrhoid pain Discontinued Medications Diphenhydramine HCl (Benadryl) 25 mg IVPUSH Q6H PRN PRN Reason: Itching Ephedrine Sulfate (Ephedrine Sulfate) 5 mg IVPUSH ASDIRECTED PRN PRN Reason: HYPOTENTSION Fentanyl (Sublimaze) 100 mcg EPIDUR Q3H PRN PRN Reason: PAIN Fentanyl (Sublimaze) Confirm Administered Dose 100 mcg .ROUTE .STK-MED ONE Stop: 09/02/16 05:25 Last Admin: 09/02/16 05:50 Dose: 100 mcg Fentanyl/Bupivacaine HCl (Fentanyl/Bupivacaine/Ns 2 Mcg-0.125% 100 Ml) 100 ml EPIDUR ASDIRECTED [facility] Last Admin: 09/02/16 05:50 Dose: 100 ml Lactated Ringer's (Ringers, Lactated) 1,000 mls @ 100 mls/hr IV ASDIRECTED [facility] Last Admin: 09/02/16 06:07 Dose: 999 mls/hr Oxytocin/Lactated Ringer's (Pitocin In Lr 10 Units/1,000 Ml) 10 unit in 1,000 mls @ 500 mls/hr IV ASDIRECTED [facility] Last Admin: 09/02/16 06:15 Dose: 500 mls/hr Sodium Chloride (Saline Flush) 10 ml FLUSH ASDIRECTED PRN PRN Reason: Keep Vein Open *Q Meaningful Use (DIS) - VTE *Q VTE Criteria *Q: - Stroke *Q Stroke Criteria *Q: - AMI *Q AMI Criteria *Q:
[2016-09-04 12:52] VITALS: BP 120/81
== END 2016-09-04 16:31 | disposition home or self-care (01) | DRG 775 ==
LOC: JD.OBCHECK 04:23 → JD.OB 04:27 → JD.OBCHECK 04:50 → INTOOBSV 04:51 → UNDOADMIN 04:51 → JD.OB 04:51 → INTOOBSV 07:11 → OBSVTOIN 07:11
PROVIDERS: ADMIT Obstetrics & Gynecology; ATTEND Obstetrics & Gynecology
PROC: 10E0XZZ Delivery of Products of Conception, External Approach (ICD-10-PCS; principal; 2016-09-02)
PROC: 00HU33Z Insertion of Infusion Device into Spinal Canal, Percutaneous Approach (ICD-10-PCS; 2016-09-02)
PROC: 3E0R3CZ (ICD-10-PCS; 2016-09-02)
DX: O42.02 Full-term premature rupture of membranes, onset of labor within 24 hours of rupture (principal); Z3A.40 40 weeks gestation of pregnancy; Z37.0 Single live birth; O77.0 Labor and delivery complicated by meconium in amniotic fluid; O69.81X0 Labor and delivery complicated by cord around neck, without compression, not applicable or unspecified
CPT/HCPCS: 01967; 36415; 85025; A9270-GY; J2590; J3010; J7120

== ENCOUNTER 2019-07-25 16:14 | Inpatient (IN) | payer OTHER ==
[2019-07-25] MEDS ORDERED: Lidocaine 1% 50 ML MDV ONE (16:28)
[2019-07-25] MEDS ORDERED: Lidocaine 1% 50 ML MDV INJECT ONE (16:29)
[2019-07-25] MEDS ORDERED: Sodium Chloride 0.9% 10 ML Syringe FLUSH PRN (16:29)
[2019-07-25] MEDS ORDERED: Oxytocin 10 Units/1 ML SDV IM ONE (16:29)
[2019-07-25] MEDS ORDERED: Lactated Ringers 1,000 ML IV SCH (16:30)
--- NOTE | 2019-07-25 17:08 | PCM.LDHP ---
L&D History of Present Illness - General Date of Service: 07/25/19 Admit Problem/Dx: Patient Status Order with Admit Dx/Problem 07/25/19 16:29 Patient Status [ADT] Routine Admission Diagnosis/Problem Admission Diagnosis/Problem Vaginal delivery Source of Information: Patient History Limitations: Reports: No Limitations - History of Present Illness Introduction:: Lory Hicks is a 24 year old now -0-1-2 female who had a precipitous delivery at 39 weeks 4 days by 9-week ultrasound (ALIN 07/28/2019) who presented in advanced labor with suspected rupture membranes while she was coming to the hospital. She stated that contractions that started earlier this morning but they became very strong and frequent throughout the day. She thinks that her water broke while she was being driven to the hospital. She states that when she arrived to the hospital she had to push. Timing/Duration: Reports: sudden onset, getting worse Location, : Reports: Pelvic Quality: Reports: Pressure, Throbbing Severity: Severe Worsens with: Reports: None Associated Symptoms: Reports: vaginal fluid. Denies: vaginal bleeding, vaginal discharge Present Illness Comments:: Lory Hicks is a 24-year-old now -0-1-2 who had a precipitous vaginal delivery prior to my arrival on labor and delivery. Patient has had routine care with Dr. Mills throughout the starting at 9 weeks gestational age. She did not receive the flu shot this year but did receive Tdap on 05/06/2019. Her was complicated by: * Anemia in with most recent hemoglobin of 9.3 on 06/19/2019. Patient was started on iron supplementation once daily. 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 G1: 09/02/2016, , male infant, 7 pounds 9 ounces, no complications G2: 07/19/2018, early miscarriage G3: Current labs Blood type: AB+ Antibody screen: Negative First trimester hematocrit/hemoglobin: 39.7%/13.5 on 01/10/2019 Platelets: 326 on 01/10/2019 Pap smear: Negative Pap smear on 01/10/2019 Urine culture: Mixed shi suggestive of contamination Rubella status: Immune Hepatitis B surface antigen: Negative RPR: Negative HIV: Negative Gonorrhea: Negative Chlamydia: Negative Hemoglobin solubility: Negative anatomy ultrasound: Normal anatomy, no abnormalities, small pericardial effusion at 28 and 32 weeks gestational age that resolved at 34 weeks gestational age. Left lateral placenta, no previa One hour glucose tolerance test: 147 Second trimester hematocrit/hemoglobin: 30.6%/10.0 on 05/06/2019 Platelets: 325 on 05/06/2019 3-hour glucose test: Fasting 66, 1 hour 109, 2-hour 116, 3-hour 100 Third trimester hematocrit/hemoglobin: 29.7%/9.3 on 06/19/2019 Platelets: 360 on 06/19/2019 GBS status: Negative - Related Data Allergies/Adverse Reactions: Allergies Allergy/AdvReac Type Severity Reaction Status Date / Time No Known Allergies Allergy Verified 07/25/19 16:31 Home Medications: Home Meds Vit Calc,Iron,Folic [ Vitamins] 1 each PO DAILY 09/02/16 [ History] Acetaminophen [Tylenol] 650 mg PO Q6H PRN #0 tablet 09/04/16 [Rx] Past Medical History [employer] ADMINISTRATOR History: Reports: : 3 Para: 2 Musculoskeletal History: Reports: Other (See Below) Other Musculoskeletal History: scoliosis surgery Social & Family History - Family History Family Medical History: Noncontributory - Tobacco Use Smoking Status *Q: Never Smoker - Tobacco Core Measures Tobacco Use/Smoking Within Last 30 Days: No Smokeless Tobacco Use in Last 30 Days: No - Caffeine Use Caffeine Use: Reports: None - Alcohol Use Alcohol Use History: No - Recreational Drug Use Recreational Drug Use: No Drug Use in Last 12 Months: No - Living Situation & Occupation Living situation: Reports: Single, with Significant Other Occupation: Employed H&P Review of Systems - Review of Systems: Review Of Systems: See Below General: Denies: Fever, Chills, Malaise, Weakness, Fatigue HEENT: Denies: Headaches, Rhinitis, Sinus Congestion, Sore Throat, Visual Changes Pulmonary: Denies: Shortness of Breath, Wheezing, Pleuritic Chest Pain, Cough Cardiovascular: Denies: Chest Pain, Palpitations, Dyspnea on Exertion, Orthopnea Gastrointestinal: Denies: Abdominal Pain, Constipation, Diarrhea, Nausea, Vomiting Genitourinary: Denies: Dysuria, Frequency, Burning, Pain, Urgency Skin: Denies: Rash, Lesions Psychiatric: Denies: Depression, Anxiety L&D Exam - Exam Exam: See Below - Vital Signs Weight: 63.049 kg - Exam General: Alert, Oriented HEENT: Conjunctiva Clear, EOMI Neck: Supple, Trachea Midline Lungs: Clear to Auscultation, Normal Respiratory Effort Cardiovascular: Regular Rate, Regular Rhythm GI/Abdominal Exam: Non-Tender, No Distention, Other (Firm uterine fundus in midline, 2 fingerbreadths below umbilicus). No: Guarding, Rigid, Rebound Genitourinary: Normal external exam Extremities: Normal Inspection, No Pedal Edema Skin: Warm, Dry, Intact Psychiatric: Alert, Normal Affect, Normal Mood - Patient Data Lab Results Last 24 hrs: Laboratory Results - last 24 hr 07/25/19 Range/Units 16:45 WBC 10.20 H (3.98-10.04) K/mm3 RBC 4.64 (3.98-5.22) M/mm3 Hgb 11.5 D (11.2-15.7) gm/dl Hct 36.3 (34.1-44.9) % MCV 78.2 L (79.4-94.8) fl MCH 24.8 L (25.6-32.2) pg MCHC 31.7 L (32.2-35.5) g/dl RDW Std Deviation 47.1 H (36.4-46.3) fL Plt Count 359 (182-369) K/mm3 MPV 8.7 L (9.4-12.3) fl Neut % (Auto) 76.9 H (34.0-71.1) % Lymph % (Auto) 15.7 L (19.3-51.7) % [place] % (Auto) 6.7 (4.7-12.5) % Eos % (Auto) 0.2 L (0.7-5.8) Baso % (Auto) 0.1 (0.1-1.2) % Neut # (Auto) 7.85 H (1.56-6.13) K/mm3 Lymph # (Auto) 1.60 (1.18-3.74) K/mm3 [place] # (Auto) 0.68 H (0.24-0.36) K/mm3 Eos # (Auto) 0.02 L (0.04-0.36) K/mm3 Baso # (Auto) 0.01 (0.01-0.08) K/mm3 Result Diagrams: 07/25/19 16:45 - Problem List (1) 39 weeks gestation of SNOMED Code(s): 77224424 ICD Code: Z3A.39 - 39 WEEKS GESTATION OF Status: Acute Current Visit: Yes (2) Vaginal delivery SNOMED Code(s): 038554375 ICD Code: O80 - ENCOUNTER FOR FULL-TERM UNCOMPLICATED DELIVERY Status: Acute Current Visit: Yes (3) Precipitous delivery SNOMED Code(s): 237381325, 748673046 ICD Code: O62.3 - PRECIPITATE LABOR Status: Acute Current Visit: Yes (4) Second degree perineal laceration during delivery SNOMED Code(s): 3474899 ICD Code: O70.1 - SECOND DEGREE PERINEAL LACERATION DURING DELIVERY Status : Acute Current Visit: Yes (5) ancestry requiring population-specific genetic screening SNOMED Code(s): 42347626, 169037177, 177734984 ICD Code: Z13.79 - ENCNTR FOR OTH SCREENING FOR GENETIC AND CHROMSOML ANOMALIES Status: Acute Current Visit: Yes (6) Anemia complicating SNOMED Code(s): 90527766 ICD Code: O99.019 - ANEMIA COMPLICATING , UNSPECIFIED TRIMESTER Status: Acute Current Visit: Yes Problem List Initiated/Reviewed/Updated: Yes Orders Last 24hrs: Active Orders 24 hr Category Date Time Status Patient Status Manage Transfer [TRANSFER] Routine ADT 07/25/19 16:58 Ordered Patient Status [ADT] Routine ADT 07/25/19 16:29 Active Activity as Tolerated [RC] PFP Care 07/25/19 16:29 Active Communication Order [RC] ASDIRECTED Care 07/25/19 16:29 Active Heart Tones [RC] ASDIRECTED Care 07/25/19 16:29 Active Non Stress Test [RC] PER UNIT ROUTINE Care 07/25/19 16:29 Active Notify Provider [RC] PFP Care 07/25/19 16:29 Active Notify Provider [RC] PRN Care 07/25/19 16:29 Active Peripheral IV Care [RC] . DIRECTED Care 07/25/19 16:29 Active Vital Signs [RC] 03,09,15,21 Care 07/25/19 16:29 Active RAPID PLASMA REAGIN,RPR [CHEM] Routine Lab 07/25/19 16:45 Received Lactated Ringers [Ringers, Lactated] 1,000 ml Med 07/25/19 16:30 Active IV ASDIRECTED Sodium Chloride 0.9% [Saline Flush] Med 07/25/19 16:29 Active 10 ml FLUSH ASDIRECTED PRN Electronic Heart Tones Ext w TOCO [WOMSER] Oth 07/25/19 16:29 Ordered Routine Electronic Heart Tones Internal [WOMSER] Per Unit Oth 07/25/19 16:29 Ordered Routine Peripheral IV Insertion Adult [OM.PC] Routine Oth 07/25/19 16:29 Ordered Resuscitation Status Routine Resus Stat 07/25/19 16:29 Ordered Medication Orders Lactated Ringer's (Ringers, Lactated) 1,000 mls @ 100 mls/hr IV ASDIRECTED ENRIQUE Sodium Chloride (Saline Flush) 10 ml FLUSH ASDIRECTED PRN PRN Reason: Keep Vein Open Assessment/Plan Comment:: Admit to inpatient following precipitous spontaneous vaginal delivery Regular diet CBC and RPR as per usual labor admission orders Patient given Pitocin 10 units IM after delivery for bleeding prophylaxis Vitals per unit routine Ibuprofen and Tylenol for pain control Assist with breast-feeding as needed Continue to monitor lochia Anticipate discharge home on day #1 Marciano Clement MD 5:24 PM 07/25/2019
[2019-07-25] MEDS ORDERED: Benzocaine/Menthol 20%-0.5% Spray 56 GM Canister TOP PRN (17:10)
[2019-07-25] MEDS ORDERED: Acetaminophen 325 MG Tab PO PRN (17:10)
[2019-07-25] MEDS ORDERED: Hydrocortisone Acetate 25 MG Supp RECTAL PRN (17:10)
[2019-07-25] MEDS ORDERED: Witch Hazel Medicated Pads 40/Jar TOP PRN (17:10)
[2019-07-25] MEDS: Ibuprofen 600 MG Tab PO PRN (17:31)
--- NOTE | 2019-07-25 17:50 | PCM.DEL ---
L & D Note - General Info Date of Service: 07/25/19 Mother's Due Date: 07/28/19 - Delivery Note Labor: Spontaneous Delivery Outcome: Livebirth Infant Delivery Method: Spontaneous Vaginal Delivery-Single Presentation: Vertex Nuchal Cord: None Anesthesia Type: Local Anesthetic: Lidocaine (Xylocaine) 1% Plain Local Anesthetic Volume: 5cc Amniotic Fluid Description: Clear Episiotomy Type: None Laceration: Perineal (2nd degree midline, repaired with 3-0 Vicryl) Suture type: Vicryl Suture size: 3-0 Placenta: Intact, Spontaneous Cord: 3 Vessels Estimated Blood Loss: 350 Resuscitation Needed: No [place]: Bulb Syringe, Stimulated, Warmed, [place] Used Provider: Marciano Clement Score 1 min: 8 Score 5 min: 9 Second Stage Interventions: Reports: Pushing Involuntarily Delivery Comments (Free Text/Narrative):: Stage I: Lory Hicks was admitted for advanced labor with rupture of membranes. On admission her cervix was completely dilated and she felt like she needed to push. She was GBS negative. Patient was transferred over to the labor and delivery bed and began pushing spontaneously. Stage II: On 07/25/2019 she had a precipitous vaginal delivery of a live female infant at 16:16 that was delivered by the nurse. Patient delivered prior to my arrival. Apgars of 8 & 9. Weight of 3470 g (7 lbs 10.4 oz). Length of 19.5 inches. The cord was doubly clamped and cut. Infant was placed on mother's abdomen. Stage III: I arrived for delivery of the placenta and she had a spontaneous delivery of an intact placenta in Ezra presentation. Three vessel cord. She was given Pitocin 10 units IM and fundal massage. She had a second-degree midline perineal laceration that was repaired with 3-0 Vicryl. She had 5 mL of 1% lidocaine injected for local anesthesia prior to repair. Mom and baby were stable to recovery. EBL of 350 mL. Marciano Clement MD 5:39 PM 07/25/2019 - General Info Date of Service: 07/25/19 - Patient Data Vitals - Most Recent: Last Vital Signs Temp 37.0 C 07/25/19 17:15 Pulse 83 07/25/19 17:15 Resp 18 07/25/19 17:15 BP 120/72 07/25/19 17:15 Pulse Ox Weight - Most Recent: 63.049 kg Lab Results Last 24 Hours: Laboratory Results - last 24 hr 07/25/19 Range/Units 16:45 WBC 10.20 H (3.98-10.04) K/mm3 RBC 4.64 (3.98-5.22) M/mm3 Hgb 11.5 D (11.2-15.7) gm/dl Hct 36.3 (34.1-44.9) % MCV 78.2 L (79.4-94.8) fl MCH 24.8 L (25.6-32.2) pg MCHC 31.7 L (32.2-35.5) g/dl RDW Std Deviation 47.1 H (36.4-46.3) fL Plt Count 359 (182-369) K/mm3 MPV 8.7 L (9.4-12.3) fl Neut % (Auto) 76.9 H (34.0-71.1) % Lymph % (Auto) 15.7 L (19.3-51.7) % [place] % (Auto) 6.7 (4.7-12.5) % Eos % (Auto) 0.2 L (0.7-5.8) Baso % (Auto) 0.1 (0.1-1.2) % Neut # (Auto) 7.85 H (1.56-6.13) K/mm3 Lymph # (Auto) 1.60 (1.18-3.74) K/mm3 [place] # (Auto) 0.68 H (0.24-0.36) K/mm3 Eos # (Auto) 0.02 L (0.04-0.36) K/mm3 Baso # (Auto) 0.01 (0.01-0.08) K/mm3 Med Orders - Current: Current Medications Acetaminophen (Tylenol) 650 mg PO Q6H PRN PRN Reason: mild pain or fever Benzocaine/Menthol (Dermoplast Pain Relief [place]) 0 gm TOP ASDIRECTED PRN PRN Reason: Perineal Comfort Measure Ferrous Sulfate (Ferrous Sulfate) 324 mg PO BIDMEALS ENRIQUE Hydrocortisone Acetate (Anucort-Hc) 25 mg RECTAL BID PRN PRN Reason: Hemorrhoid pain Ibuprofen (Motrin) 600 mg PO Q6H PRN PRN Reason: Mild pain or fever Last Admin: 07/25/19 17:31 Dose: 600 mg Prenat Multivit/[place]/Iron/Folic Ac ( Plus Iron) 1 each PO DAILY [facility] Ascencion Bowman (Tucks) 1 pad TOP ASDIRECTED PRN PRN Reason: Perineal Comfort Measure Discontinued Medications Lactated Ringer's (Ringers, Lactated) 1,000 mls @ 100 mls/hr IV ASDIRECTED [facility] Lidocaine HCl (Xylocaine 1%) Confirm Administered Dose 50 ml .ROUTE .STK-MED ONE Stop: 07/25/19 16:29 Lidocaine HCl (Xylocaine 1%) 50 ml INJECT ONETIME ONE Stop: 07/25/19 16:30 Last Admin: 07/25/19 16:30 Dose: 50 ml Oxytocin (Pitocin) 10 unit IM ONETIME ONE Stop: 07/25/19 16:30 Last Admin: 07/25/19 17:29 Dose: 10 unit Sodium Chloride (Saline Flush) 10 ml FLUSH ASDIRECTED PRN PRN Reason: Keep Vein Open - Problem List & Annotations (1) 39 weeks gestation of SNOMED Code(s): 92427647 Code(s): Z3A.39 - 39 WEEKS GESTATION OF Status: Acute Current Visit: Yes (2) Vaginal delivery SNOMED Code(s): 783213559 Code(s): O80 - ENCOUNTER FOR FULL-TERM UNCOMPLICATED DELIVERY Status: Acute Current Visit: Yes (3) Precipitous delivery SNOMED Code(s): 615857487, 909052960 Code(s): O62.3 - PRECIPITATE LABOR Status: Acute Current Visit: Yes (4) Second degree perineal laceration during delivery SNOMED Code(s): 4689816 Code(s): O70.1 - SECOND DEGREE PERINEAL LACERATION DURING DELIVERY Status: Acute Current Visit: Yes (5) ancestry requiring population-specific genetic screening SNOMED Code(s): 81860324, 311491973, 120772002 Code(s): Z13.79 - ENCNTR FOR OTH SCREENING FOR GENETIC AND CHROMSOML ANOMALIES Status: Acute Current Visit: Yes (6) Anemia complicating SNOMED Code(s): 85061802 Code(s): O99.019 - ANEMIA COMPLICATING , UNSPECIFIED TRIMESTER Status: Acute Current Visit: Yes - Problem List Review Problem List Initiated/Reviewed/Updated: Yes - My Orders Last 24 Hours: My Active Orders 07/25/19 16:29 Heart Tones [RC] ASDIRECTED Non Stress Test [RC] PER UNIT ROUTINE Peripheral IV Care [RC] . DIRECTED Vital Signs [RC] 03,,,21 Resuscitation Status Routine 07/25/19 16:45 RAPID PLASMA REAGIN,RPR [CHEM] Routine 07/25/19 17:10 Patient Status [ADT] Routine Activity as Tolerated [RC] PER UNIT ROUTINE May Shower [RC] ASDIRECTED Notify Provider Vital Signs [RC] ASDIRECTED Vital Signs [RC] ASDIRECTED Acetaminophen [Tylenol] 650 mg PO Q6H PRN Benzocaine/Menthol [Dermoplast Pain Relief [place]] See Dose Instructions TOP ASDIRECTED PRN Ferrous Sulfate 324 mg PO BIDMEALS Hydrocortisone Acetate [Anucort-HC] 25 mg RECTAL BID PRN Ibuprofen [Motrin] 600 mg PO Q6H PRN witch Yulisa [Tucks] 1 pad TOP ASDIRECTED PRN Assess Lochia [WOMSER] Per Unit Routine Assess Uterine Involution [WOMSER] Per Unit Routine Breast Pump [WOMSER] Per Unit Routine Heat Therapy [OM.PC] PRN Ice Therapy [OM.PC] Per Unit Routine Medication Administration Instruction [OM.PC] Routine Perineal Care [OM.PC] Per Unit Routine Sitz Bath [OM.PC] Per Unit Routine 07/25/19 Dinner Regular Diet [DIET] 07/26/19 09:00 Vit with Ca/FA/Iron [ Plus Iron] 1 each PO DAILY 07/26/19 17:10 Heat Therapy [OM.PC] PRN - Plan Plan:: Admit to inpatient following precipitous spontaneous vaginal delivery Regular diet CBC and RPR as per usual labor admission orders Patient given Pitocin 10 units IM after delivery for bleeding prophylaxis Vitals per unit routine Ibuprofen and Tylenol for pain control Assist with breast-feeding as needed Continue to monitor lochia Anticipate discharge home on day #1 Marciano Clement MD 5:24 PM 07/25/2019
[2019-07-26] MEDS: Ferrous Sulfate 324 MG Tab.EC PO SCH ×3 (02:50→18:38)
[2019-07-26] MEDS: Ibuprofen 600 MG Tab PO PRN (06:08)
--- NOTE | 2019-07-26 08:55 | PCM.SN ---
- Free Text/Narrative Note: Post Progress Note PPD #1 Subjective: Doing well overall. Ambulating without difficulty. Lochia minimal. Voiding without difficulty. Tolerating regular diet without nausea or vomiting. Pain controlled with oral medications. Breast-feeding with minimal difficulty. Objective: Vitals: Vital Signs - 24 hr 07/25/19 07/25/19 07/26/19 17:15 19:53 04:27 Temperature 36.7 C 37.4 C Temperature [ 37.0 C Temporal] Pulse, 71 83 Peripheral Pulse, 83 Peripheral [ Pulse Oximetry] Respiratory 18 14 14 Rate Blood Pressure 121/69 104/68 Blood Pressure 120/72 [Lower Arm] O2 Sat by Pulse 99 98 Oximetry Physical Exam General: Alert and oriented, no acute distress Lungs: Clear to auscultation bilaterally Heart: Regular rate and rhythm Abdomen: Soft, minimal appropriate tenderness, non-distended, fundus midline, nontender, and 1 fingerbreadth below the umbilicus Extremities: No edema ASSESSMENT: 24-year-old female -0-1-2 s/p precipitous vaginal delivery PPD #1, complicated by anemia in and ancestry PLAN: Doing well Breast-feeding with minimal difficulty. Assist as needed Lochia minimal. Continue to monitor for appropriate lochia. Continue routine care Anticipate discharge home today Marciano Clement MD 8:54 AM 07/26/2019
[2019-07-26] MEDS ORDERED: FLU Vacc QS2019-20(6MOS+)/PF 60 MCG/0.5 ML SYRINGE IM ONE (09:00)
[2019-07-26] MEDS ORDERED: Prenatal Multivitamin with Calcium/Folic Acid/Iron Tab PO SCH (09:00)
--- NOTE | 2019-07-26 09:06 | PCM.DCSUM1 ---
Discharge Summary - Hospital Course Free Text/Narrative:: - General Info Date of Service: 07/25/19 Mother's Due Date: 07/28/19 - Delivery Note Labor: Spontaneous Delivery Outcome: Livebirth Infant Delivery Method: Spontaneous Vaginal Delivery-Single Presentation: Vertex Nuchal Cord: None Anesthesia Type: Local Anesthetic: Lidocaine (Xylocaine) 1% Plain Local Anesthetic Volume: 5cc Amniotic Fluid Description: Clear Episiotomy Type: None Laceration: Perineal (2nd degree midline, repaired with 3-0 Vicryl) Suture type: Vicryl Suture size: 3-0 Placenta: Intact, Spontaneous Cord: 3 Vessels Estimated Blood Loss: 350 Resuscitation Needed: No [place]: Bulb Syringe, Stimulated, Warmed, Armbrust Used Provider: Marciano Clement Score 1 min: 8 Score 5 min: 9 Second Stage Interventions: Reports: Pushing Involuntarily Delivery Comments (Free Text/Narrative):: Stage I: Lory Hicks was admitted for advanced labor with rupture of membranes. On admission her cervix was completely dilated and she felt like she needed to push. She was GBS negative. Patient was transferred over to the labor and delivery bed and began pushing spontaneously. Stage II: On 07/25/2019 she had a precipitous vaginal delivery of a live female at 16:16 that was delivered by the nurse. Patient delivered prior to my arrival. Apgars of 8 & 9. Weight of 3470 g (7 lbs 10.4 oz). Length of 19.5 inches. The cord was doubly clamped and cut. was placed on mother's abdomen. Stage III: I arrived for delivery of the placenta and she had a spontaneous delivery of an intact placenta in Ezra presentation. Three vessel cord. She was given Pitocin 10 units IM and fundal massage. She had a second-degree midline perineal laceration that was repaired with 3-0 Vicryl. She had 5 mL of 1% lidocaine injected for local anesthesia prior to repair. Mom and baby were stable to recovery. EBL of 350 mL. HPI Initial Comments: - General Info Date of Service: 07/25/19 Mother's Due Date: 07/28/19 - Delivery Note Labor: Spontaneous Delivery Outcome: Livebirth Infant Delivery Method: Spontaneous Vaginal Delivery-Single Presentation: Vertex Nuchal Cord: None Anesthesia Type: Local Anesthetic: Lidocaine (Xylocaine) 1% Plain Local Anesthetic Volume: 5cc Amniotic Fluid Description: Clear Episiotomy Type: None Laceration: Perineal (2nd degree midline, repaired with 3-0 Vicryl) Suture type: Vicryl Suture size: 3-0 Placenta: Intact, Spontaneous Cord: 3 Vessels Estimated Blood Loss: 350 Resuscitation Needed: No : Bulb Syringe, Stimulated, Warmed, Armbrust Used Provider: Marciano Clement Score 1 min: 8 Score 5 min: 9 Second Stage Interventions: Reports: Pushing Involuntarily Delivery Comments (Free Text/Narrative):: Stage I: Lory Hicks was admitted for advanced labor with rupture of membranes. On admission her cervix was completely dilated and she felt like she needed to push. She was GBS negative. Patient was transferred over to the labor and delivery bed and began pushing spontaneously. Stage II: On 07/25/2019 she had a precipitous vaginal delivery of a live female at 16:16 that was delivered by the nurse. Patient delivered prior to my arrival. Apgars of 8 & 9. Weight of 3470 g (7 lbs 10.4 oz). Length of 19.5 inches. The cord was doubly clamped and cut. Infant was placed on mother's abdomen. Stage III: I arrived for delivery of the placenta and she had a spontaneous delivery of an intact placenta in Ezra presentation. Three vessel cord. She was given Pitocin 10 units IM and fundal massage. She had a second-degree midline perineal laceration that was repaired with 3-0 Vicryl. She had 5 mL of 1% lidocaine injected for local anesthesia prior to repair. Mom and baby were stable to recovery. EBL of 350 mL. Brief History: - General Info. Date of Service: 07/25/19. Mother's Due Date: 07/28/19. - Delivery Note. Labor: Spontaneous. Delivery Outcome: Livebirth. Delivery Method: Spontaneous Vaginal Delivery-Single. Presentation : Vertex. Nuchal Cord: None. Anesthesia Type: Local. Anesthetic: Lidocaine ( Xylocaine) 1% Plain. Local Anesthetic Volume: 5cc. Amniotic Fluid Description : Clear. Episiotomy Type: None. Laceration: Perineal (2nd degree midline, repaired with 3-0 Vicryl). Suture type: Vicryl. Suture size: 3-0. Placenta: Intact, Spontaneous. Cord: 3 Vessels. Estimated Blood Loss: 350. Resuscitation Needed: No. [place]: Bulb Syringe, Stimulated, Warmed, Armbrust Used. Provider: Marciano Clement. Score 1 min: 8. Score 5 min: 9. Second Stage Interventions: Reports: Pushing Involuntarily. Delivery Comments (Free Text/Narrative):: Stage I: Lory Hicks was admitted for advanced labor with rupture of membranes. On admission her cervix was completely dilated and she felt like she needed to push. She was GBS negative. Patient was transferred over to the labor and delivery bed and began pushing spontaneously. Stage II: On 07/25/2019 she had a precipitous vaginal delivery of a live female at 16:16 that was delivered by the nurse. Patient delivered prior to my arrival. Apgars of 8 & 9. Weight of 3470 g (7 lbs 10.4 oz) . Length of 19.5 inches. The cord was doubly clamped and cut. was placed on mother's abdomen. Stage III: I arrived for delivery of the placenta and she had a spontaneous delivery of an intact placenta in Ezra presentation. Three vessel cord. She was given Pitocin 10 units IM and fundal massage. She had a second-degree midline perineal laceration that was repaired with 3-0 Vicryl. She had 5 mL of 1% lidocaine injected for local anesthesia prior to repair. Mom and baby were stable to recovery. EBL of 350 mL. Diagnosis: Stroke: No - Discharge Data Discharge Date: 07/26/19 Discharge Disposition: Home, Self-Care 01 Condition: Good - Referral to Home Health Primary Care Physician: Marciano Clement MD - Discharge Diagnosis/Problem(s) (1) 39 weeks gestation of SNOMED Code(s): 13953391 ICD Code: Z3A.39 - 39 WEEKS GESTATION OF Status: Acute Current Visit: Yes (2) Vaginal delivery SNOMED Code(s): 068135945 ICD Code: O80 - ENCOUNTER FOR FULL-TERM UNCOMPLICATED DELIVERY Status: Acute Current Visit: Yes (3) Precipitous delivery SNOMED Code(s): 513171466, 785009210 ICD Code: O62.3 - PRECIPITATE LABOR Status: Acute Current Visit: Yes (4) Second degree perineal laceration during delivery SNOMED Code(s): 7494084 ICD Code: O70.1 - SECOND DEGREE PERINEAL LACERATION DURING DELIVERY Status : Acute Current Visit: Yes (5) ancestry requiring population-specific genetic screening SNOMED Code(s): 33891538, 463516307, 761041371 ICD Code: Z13.79 - ENCNTR FOR OTH SCREENING FOR GENETIC AND CHROMSOML ANOMALIES Status: Acute Current Visit: Yes (6) Anemia complicating SNOMED Code(s): 44147215 ICD Code: O99.019 - ANEMIA COMPLICATING , UNSPECIFIED TRIMESTER Status: Acute Current Visit: Yes - Patient Summary/Data 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 On admission her cervix was dilated to 10 cm and she stated she felt like she needed to push to deliver the . She was GBS negative. Patient was transferred over to the labor and delivery bed and began pushing spontaneously. On 07/25/2019 she had a precipitous vaginal delivery of a live female infant at 16:16. Apgars of 8 and 9. Weight of 3470 g (7 pounds 10.4 ounces). Her course was uneventful. Her pain was well controlled and she had minimal lochia. She was ambulating, tolerating a regular diet and voiding normally. She was breast-feeding with minimal difficulty. She was afebrile and her hematocrit was 36.3 shortly after delivery. She desired to be discharged home on the morning of PPD #1. Her blood type is AB+. - Patient Instructions Diet: Regular Diet as Tolerated Activity: Apply Ice, As Tolerated Activity, Other: Nothing in the vagina for 6 weeks Driving: May Drive Today Showering/Bathing: May Shower Notify Provider of: Fever, Increased Pain, Swelling and Redness, Drainage, Nausea and/or Vomiting Other/Special Instructions: Please contact your physician's office if you have heavy vaginal bleeding enough to soak a pad in less than an hour for several hours. Monitor for any signs of an infection in the breasts with severe pain or warmth of the breast. - Discharge Plan *PRESCRIPTION DRUG MONITORING PROGRAM REVIEWED*: Not Applicable *COPY OF PRESCRIPTION DRUG MONITORING REPORT IN PATIENT AMADOR: Not Applicable Home Medications: Home Meds Vit Calc,Iron,Folic [ Vitamins] 1 each PO DAILY 09/02/16 [ History] Acetaminophen [Tylenol] 650 mg PO Q6H PRN tablet 07/26/19 [Rx] Benzocaine/Menthol [Dermoplast Pain Relief Artemus] 1 spray TOP ASDIRECTED PRN canister 07/26/19 [Rx] Ferrous Sulfate 324 mg PO BIDMEALS tab.ec 07/26/19 [Rx] Hydrocortisone Acetate [Anucort-HC] 25 mg RECTAL BID PRN supp 07/26/19 [Rx] Ibuprofen [Motrin] 600 mg PO Q6H PRN tablet 07/26/19 [Rx] ascencion waterseL [Tucks] 1 pad TOP ASDIRECTED PRN pad 07/26/19 [Rx] Patient Handouts: Care of a Perineal Tear, Care After Vaginal Delivery Referrals: Marciano Clement MD [Primary Care Provider] - (Follow-up in 2 weeks for routine visit or earlier as needed.) - Discharge Summary/Plan Comment DC Time >30 min.: No - Patient Data Vitals - Most Recent: Last Vital Signs Temp 37.4 C 07/26/19 04:27 Pulse 83 07/26/19 04:27 Resp 14 07/26/19 04:27 BP 104/68 07/26/19 04:27 Pulse Ox 98 07/26/19 04:27 Weight - Most Recent: 63.049 kg I&O - Last 24 hours: Intake & Output 07/25/19 07/26/19 07/26/19 22:59 06:59 14:59 Intake Total 120 Balance 120 Lab Results - Last 24 hrs: Laboratory Results - last 24 hr 07/25/19 07/25/19 Range/Units 16:45 16:45 WBC 10.20 H (3.98-10.04) K/mm3 RBC 4.64 (3.98-5.22) M/mm3 Hgb 11.5 D (11.2-15.7) gm/dl Hct 36.3 (34.1-44.9) % MCV 78.2 L (79.4-94.8) fl MCH 24.8 L (25.6-32.2) pg MCHC 31.7 L (32.2-35.5) g/dl RDW Std Deviation 47.1 H (36.4-46.3) fL Plt Count 359 (182-369) K/mm3 MPV 8.7 L (9.4-12.3) fl Neut % (Auto) 76.9 H (34.0-71.1) % Lymph % (Auto) 15.7 L (19.3-51.7) % Stokes % (Auto) 6.7 (4.7-12.5) % Eos % (Auto) 0.2 L (0.7-5.8) Baso % (Auto) 0.1 (0.1-1.2) % Neut # (Auto) 7.85 H (1.56-6.13) K/mm3 Lymph # (Auto) 1.60 (1.18-3.74) K/mm3 Stokes # (Auto) 0.68 H (0.24-0.36) K/mm3 Eos # (Auto) 0.02 L (0.04-0.36) K/mm3 Baso # (Auto) 0.01 (0.01-0.08) K/mm3 RPR Non-reactive (NONREACTIVE) Med Orders - Current: Current Medications Acetaminophen (Tylenol) 650 mg PO Q6H PRN PRN Reason: mild pain or fever Benzocaine/Menthol (Dermoplast Pain Relief Artemus) 0 gm TOP ASDIRECTED PRN PRN Reason: Perineal Comfort Measure Last Admin: 07/25/19 18:24 Dose: 1 spray Ferrous Sulfate (Ferrous Sulfate) 324 mg PO BIDMEALS [facility] Last Admin: 07/26/19 02:50 Dose: Not Given Hydrocortisone Acetate (Anucort-Hc) 25 mg RECTAL BID PRN PRN Reason: Hemorrhoid pain Ibuprofen (Motrin) 600 mg PO Q6H PRN PRN Reason: Mild pain or fever Last Admin: 07/26/19 06:08 Dose: 600 mg Prenat Multivit/Sheriff/Iron/Folic Ac ( Plus Iron) 1 each PO DAILY [facility] Ascencion Bowman (Erick) 1 pad TOP ASDIRECTED PRN PRN Reason: Perineal Comfort Measure Last Admin: 07/25/19 18:24 Dose: 1 pad Discontinued Medications Lactated Ringer's (Ringers, Lactated) 1,000 mls @ 100 mls/hr IV ASDIRECTED [facility] Influenza Virus Vaccine (Pharmacy To Dose - Influenza Vaccine) 1 each IM ONETIME ONE Stop: 03/26/20 20:06 Influenza Virus Vaccine (Fluzone Quad [id number] Syringe) 60 mcg IM .ONCE ONE Stop: 07/26/19 09:01 Lidocaine HCl (Xylocaine 1%) Confirm Administered Dose 50 ml .ROUTE .STK-MED ONE Stop: 07/25/19 16:29 Last Admin: 07/26/19 06:04 Dose: Not Given Lidocaine HCl (Xylocaine 1%) 50 ml INJECT ONETIME ONE Stop: 07/25/19 16:30 Last Admin: 07/25/19 16:30 Dose: 50 ml Oxytocin (Pitocin) 10 unit IM ONETIME ONE Stop: 07/25/19 16:30 Last Admin: 07/25/19 17:29 Dose: 10 unit Sodium Chloride (Saline Flush) 10 ml FLUSH ASDIRECTED PRN PRN Reason: Keep Vein Open
[2019-07-26 18:33] VITALS: BP 121/62; PULSE 90
== END 2019-07-26 18:37 | disposition home or self-care (01) | DRG 807 ==
LOC: JD.OBCHECK 16:14 → JD.OB 16:16 → JD.OBCHECK 16:27 → JD.OB 16:36
PROVIDERS: ADMIT Obstetrics & Gynecology; ATTEND Obstetrics & Gynecology
PROC: 10E0XZZ Delivery of Products of Conception, External Approach (ICD-10-PCS; principal; 2019-07-25)
PROC: 0KQM0ZZ Repair Perineum Muscle, Open Approach (ICD-10-PCS; 2019-07-25)
DX: O62.3 Precipitate labor (principal); Z37.0 Single live birth; Z3A.39 39 weeks gestation of pregnancy; O70.1 Second degree perineal laceration during delivery; O99.02 Anemia complicating childbirth; D64.9 Anemia, unspecified; Z13.79 Encounter for other screening for genetic and chromosomal anomalies
CPT/HCPCS: 36415; 59409; 85025; 86592; 90686; A9270-GY; G0008; J2001; J2590